=== PATIENT | female | born 1945 | race African-American/Black ===

== ENCOUNTER 2024-02-14 01:41 | Emergency (ER) | payer MEDICARE, OTHER ==
[~2024-02-14] VITALS: Ht 175.3 cm; Wt 109.3 kg
[2024-02-14 02:15] VITALS: PULSE 58; RESP 18; TEMP 97.6
[2024-02-14] MEDS: ASPIRIN 81 MG CHEW TAB PO ONE (04:14)
[2024-02-14] MEDS: ONDANSETRON HCL INJ 2MG/ML 2ML 2 MG/ML VIAL IV ONE (04:15)
[2024-02-14 04:16] VITALS: BP 149/91; PULSE 54; RESP 17; TEMP 98.3; O2SAT 99
[2024-02-14] MEDS: FAMOTIDINE 20 MG/2 ML VIAL IV ONE (04:16)
== END 2024-02-14 04:00 | disposition home or self-care (01) ==
LOC: FSED 01:50
DX: R10.13 Epigastric pain (principal); R07.9 Chest pain, unspecified; I10 Essential (primary) hypertension; E11.9 Type 2 diabetes mellitus without complications; K21.9 Gastro-esophageal reflux disease without esophagitis; R94.31 Abnormal electrocardiogram [ECG] [EKG]
CPT/HCPCS: 71046; 93005; 99284